=== PATIENT | female | born 1965 | race Asian ===

== ENCOUNTER → 2024-09-11 | Outpatient (CLI) | payer OTHER, SELFPAY ==
--- NOTE | 2024-09-11 08:45 | XR_ITS ---
Examination: Breast ultrasound, unilateral, right complete Date and time of exam: 07/14/2024 0849 hrs. Indications: Right breast sonogram 03/13/2024 12:00 nodule 16 mm 1:00 nodule 8 mm 7:00 nodule 13 mm 10:00 nodule 8 mm Technique: Real-time ayala scale ultrasonographic imaging performed right breast including all 4 quadrants as well as nipple retroareolar and axillary region. Findings: 12:00 nodule 17 x 13 mm 1:00 nodule 8 x 8 mm 7:00 nodule 12 x 11 mm 10:00 nodule 7 x 7 mm, all with lobular margins Impression: BI-RADS Category 3: Probably benign findings Recommend 1 additional 6 month right breast sonogram follow-up to document continued stability of multiple solid nodules described above
== END | disposition home or self-care (01) ==
LOC: CDIM 08:26
PROVIDERS: PCP Family Medicine; Referring Provider Family Medicine; Visit Provider Family Medicine
DX: N63.15 Unspecified lump in the right breast, overlapping quadrants (principal); N63.12 Unspecified lump in the right breast, upper inner quadrant; N63.11 Unspecified lump in the right breast, upper outer quadrant; N63.13 Unspecified lump in the right breast, lower outer quadrant
CPT/HCPCS: 76641

== ENCOUNTER → 2025-01-11 | Outpatient (CLI) | payer OTHER, SELFPAY ==
--- NOTE | 2025-01-11 09:45 | XR_ITS ---
Examination: Screening digital mammography, bilateral Computer aided detection 3-D breast Tomosynthesis, bilateral Date and time of exam: January 11, 2025 0943 hours Compared to mammograms dating to April 11, 2020 Indication: Screening Technique: Nonmagnified MLO, CC views of the breasts to been obtained, reconstructed from 3-D Tomosynthesis images. R2 computer aided detection program utilized for evaluation of suspicious masses and/or abnormal calcifications. 3-D Tomosynthesis images obtained. Findings: The breasts are heterogeneously dense, which may obscure small masses Breast biopsy markers outer right breast and inner upper right breast 8 mm circumscribed nodule upper left breast MLO view 4 cm from the nipple Impression: BI-RADS category II: Benign Findings. BI-RADS Category 0: Incomplete: Need additional imaging evaluation 8 mm circumscribed nodule upper left breast MLO view 4 cm from the nipple, recommend follow-up spot tomographic views upper outer quadrant left breast as well as bilateral breast sonography to complete the workup
== END | disposition home or self-care (01) ==
LOC: CDIM 09:18
PROVIDERS: Referring Provider Family Medicine; Visit Provider Family Medicine
DX: Z12.31 Encounter for screening mammogram for malignant neoplasm of breast (principal); R92.333 Mammographic heterogeneous density, bilateral breasts; N63.20 Unspecified lump in the left breast, unspecified quadrant
CPT/HCPCS: 77063; 77067

== ENCOUNTER → 2025-02-02 | Outpatient (CLI) | payer OTHER, SELFPAY ==
--- NOTE | 2025-02-02 09:15 | XR_ITS ---
Examination: Breast ultrasound complete, bilateral Date and time of exam: February 02, 2025 0928 hours INDICATIONS: Mammogram January 11, 2025 8 mm circumscribed nodule upper left breast Technique: Real-time grayscale ultrasonographic imaging bilateral breasts, including all 4 quadrants as well as nipple retroareolar and axillary regions. Findings: Sonographic images right breast 12:00 nodule 14 x 14 mm lobular margins 7:00 nodule 9 x 8 mm circumscribed Sonographic images left breast 3:00 nodule circumscribed 10 x 8 mm 7 mm left axillary lymph node Bilateral multiple smaller solid nodules IMPRESSION: BI-RADS Category 3: Probably benign findings Continued 6 month bilateral breast sonography follow-up is needed to document stability of multiple solid nodules including larger solid nodules described above
--- NOTE | 2025-02-02 10:15 | XR_ITS ---
Examination: Diagnostic digital mammography, unilateral, left Computer aided detection 3-D breast Tomosynthesis, unilateral Date and time of exam: February 02, 2025 0949 hours INDICATIONS: Mammogram January 11, 2025 8 mm circumscribed nodule left breast MLO view, 4 cm from the nipple Technique: Nonmagnified MLO, CC views of the left breast have been obtained, reconstructed from 3-D Tomosynthesis images. R2 computer aided detection program utilized for evaluation of suspicious masses and/or abnormal calcifications. 3-D Tomosynthesis images obtained. Findings: The breast is heterogeneously dense, which may obscure small masses Focal asymmetry remains upper left breast MLO view, 4 mm Impression: BI-RADS category 3: Probably benign findings One additional 6 month left mammogram follow-up is needed
== END | disposition home or self-care (01) ==
LOC: CDIM 08:59
PROVIDERS: Referring Provider Family Medicine; Visit Provider Family Medicine
DX: R92.332 Mammographic heterogeneous density, left breast (principal); N63.25 Unspecified lump in the left breast, overlapping quadrants; N63.15 Unspecified lump in the right breast, overlapping quadrants; N63.32 Unspecified lump in axillary tail of the left breast; N63.13 Unspecified lump in the right breast, lower outer quadrant
CPT/HCPCS: 76641; 77061; 77065; G0279